=== PATIENT | male | born 1990 | race American Indian/Alaskan Native ===

== ENCOUNTER 2017-02-01 05:42 | Emergency (ER) | payer MEDICAID ==
[2017-02-01 06:32] VITALS: BP 139/88
[2017-02-01 07:58] LABS: Urine Drugs of Abuse Note Disclamer
[2017-02-01 08:13] LABS: Bilirubin,Urine NEG (Negative); Blood,Urine NEG (Negative); Ketones,Urine NEG (Negative); Leukocyte Esterase,Urine NEG (Negative); Nitrite,Urine NEG (Negative); Protein,Urine <15 mg/dL mg/dL (Negative); RBC,Urine < 1.0 /HPF (0.0-6.0); Urobilinogen,Urine < 2.0 mg/dL (<2.0)
[2017-02-01 08:15] LABS: WBC,Urine < 1.0 /HPF (0.0-6.0)
--- NOTE | 2017-02-01 18:28 | ED Elopement Review ---
ED Pt Elopement review - Results review Lab results: Laboratory Tests 02/01/17 02/01/17 Unknown Unknown Urine Color Colorless Urine Turbidity Clear Urine pH 6.0 Ur Specific Thornton 1.002 L Urine Protein <15 mg/dl Urine Glucose (UA) Neg Urine Ketones Neg Urine Blood Neg Urine Nitrite Neg Urine Bilirubin Neg Urine Urobilinogen < 2.0 Ur Leukocyte Esterase Neg Urine WBC (Auto) < 1.0 Urine RBC (Auto) < 1.0 Urine Opiates Screen Presumptive negative Urine Methadone Screen Presumptive negative Ur Barbiturates Screen Presumptive negative Ur Phencyclidine Scrn Presumptive negative Ur Amphetamines Screen Presumptive negative U Benzodiazepines Scrn Presumptive negative Urine Cocaine Screen Presumptive negative U Marijuana (THC) Screen Presumptive negative Drugs of Abuse Note Disclamer - Call Back decision Pt Call Back Decision: No action required
== END 2017-02-01 08:00 | disposition left against medical advice (07) ==
LOC: ED 05:42
DX: F20.9 Schizophrenia, unspecified (principal); Z53.21 Procedure and treatment not carried out due to patient leaving prior to being seen by health care provider
CPT/HCPCS: 80307; 81001

== ENCOUNTER 2017-04-17 21:32 | Emergency (ER) | payer MEDICAID ==
[2017-04-17 22:01] VITALS: BP 126/95
--- NOTE | 2017-04-18 00:02 | Emergency Department Report ---
ED Lower Extremity HPI - General Chief Complaint: Extremity Injury, Lower Stated Complaint: SPRAINED RT KNEE Time Seen by Provider: 04/17/17 23:34 Source: patient Mode of arrival: Ambulatory Limitations: No Limitations - History of Present Illness Initial Comments: 18-year-old male past medical history schizophrenia, asthma presents with complaint of right knee pain. Patient states that he was playing basketball this afternoon and after a jump felt pain in his right knee. Patient is ambulatory with slight limp. Patient denies any other injuries. States he felt slight popping sensation in his right knee. Occurred this afternoon. Patient is ambulatory but limping. Complaint: knee injury Onset/Timin -: hour(s) Injury: Knee: Right Type of Injury: other (jump) Place: street/outdoors Severity: moderate Severity scale (0 -10): 5 Improves With: immobilization Worsens With: weight bearing, movement, palpation Context: jumping Associated Symptoms: able to partially bear weight - Related Data Home Medications Medication Instructions Recorded Confirmed Last Taken Benztropine 0.5 mg PO HS 02/01/17 02/01/17 Unknown Geodon 80 mg PO HS 02/01/17 02/01/17 Unknown Previous Rx's Medication Instructions Recorded Last Taken Type ALBUTEROL Inhaler [ProAir HFA 2 puff IH QID PRN #1 inhalation 10/31/16 Unknown Rx Inhaler] Naproxen [Naprosyn TAB] 500 mg PO BID PRN #25 tablet 04/18/17 Unknown Rx Allergies Allergy/AdvReac Type Severity Reaction Status Date / Time No Known Allergies Allergy Unverified 10/31/16 10:55 ED Review of Systems ROS: Stated complaint: SPRAINED RT KNEE Other details as noted in HPI Constitutional: denies: chills, fever Eyes: denies: eye pain, eye discharge, vision change ENT: denies: ear pain, throat pain Respiratory: denies: cough, shortness of breath, wheezing Cardiovascular: denies: chest pain, palpitations Endocrine: no symptoms reported Gastrointestinal: denies: abdominal pain, nausea, diarrhea Genitourinary: denies: urgency, dysuria Musculoskeletal: denies: back pain, joint swelling, arthralgia Skin: denies: rash, lesions Neurological: denies: headache, weakness, paresthesias Psychiatric: denies: anxiety, depression Hematological/Lymphatic: denies: easy bleeding, easy bruising ED Past Medical Hx - Past Medical History Previous Medical History?: Yes Hx Psychiatric Treatment: Yes (SCHIZOPHRENIA) Hx Asthma: Yes - Surgical History Past Surgical History?: No - Social History Smoking Status: Current Every Day Smoker Substance Use Type: None - Medications Home Medications: Home Medications Medication Instructions Recorded Confirmed Last Taken Type ALBUTEROL Inhaler [ProAir HFA 2 puff IH QID PRN #1 inhalation 10/31/16 02/01/17 Unknown Rx Inhaler] Benztropine 0.5 mg PO HS 02/01/17 02/01/17 Unknown History Geodon 80 mg PO HS 02/01/17 02/01/17 Unknown History Naproxen [Naprosyn TAB] 500 mg PO BID PRN #25 tablet 04/18/17 Unknown Rx ED Physical Exam - General Limitations: No Limitations General appearance: alert, in no apparent distress - Head Head exam: Present: atraumatic, normocephalic - Eye Eye exam: Present: normal appearance, PERRL, EOMI - ENT ENT exam: Present: mucous membranes moist - Neck Neck exam: Present: normal inspection - Respiratory Respiratory exam: Present: normal lung sounds bilaterally. Absent: respiratory distress - Cardiovascular Cardiovascular Exam: Present: regular rate, normal rhythm. Absent: systolic murmur, diastolic murmur, rubs, gallop - GI/Abdominal GI/Abdominal exam: Present: soft, normal bowel sounds - Rectal Rectal exam: Present: deferred - Extremities Exam Extremities exam: Present: normal inspection - Expanded Lower Extremity Exam Right Hip exam: Present: normal inspection, full ROM Upper Leg exam: Present: normal inspection, full ROM Knee exam: Present: full ROM (full knee extension and flexion), tenderness ( mild anterior knee tenderness) Lower Leg exam: Present: normal inspection, full ROM Ankle exam: Present: normal inspection, full ROM Foot/Toe exam: Present: normal inspection, full ROM Neuro vascular tendon exam: Present: no vascular compromise (distal dorsalis pedis and posterior tibial pulses intact distal sensation intact. Popliteal pulses right knee/leg intact) Gait: Positive: antalgic 1 - Mild pain on palpation here, minimal to no swelling, popliteal pulses intact - Back Exam Back exam: Present: normal inspection - Neurological Exam Neurological exam: Present: alert, oriented X3 - Psychiatric Psychiatric exam: Present: normal affect, normal mood - Skin Skin exam: Present: warm, dry, intact, normal color. Absent: rash ED Course Vital Signs 04/17/17 21:57 Temperature 98.4 F Pulse Rate 92 H Respiratory 18 Rate Blood Pressure 126/95 O2 Sat by Pulse 100 Oximetry ED Lower Extremity MDM - Medical Decision Making A/P: Right knee sprain, possible meniscus injury 1-x-ray shows no acute fracture 2-naproxen when necessary 3-RICE therapy, Mauricio wrap, knee immobilizer 4- referred to orthopedics Critical care attestation.: If time is entered above; I have spent that time in minutes in the direct care of this critically ill patient, excluding procedure time. ED Disposition Clinical Impression: Right knee sprain Qualifiers: Encounter type: initial encounter Involved ligament of knee: unspecified collateral ligament Qualified Code(s): S83.401A - Sprain of unspecified collateral ligament of right knee, initial encounter Disposition: TO HOME OR SELFCARE Is pt being admited?: No Does the pt Need Aspirin: No Condition: Stable Instructions: Knee Pain (ED), Knee Immobilizer (ED), RICE Therapy (ED) Prescriptions: Naproxen [Naprosyn TAB] 500 mg PO BID PRN #25 tablet PRN Reason: Pain Referrals: BRIANNE SHORT MD [Staff Physician] - 3-5 Days [facility] [Provider Group] - 3-5 Days Forms: Work/School Release Form(ED) Time of Disposition: 00:05
[2017-04-18] MEDS ORDERED: MOTRIN PO ONE (00:04)
--- NOTE | 2017-04-18 07:31 | XRay Report ---
RIGHT KNEE, 3 views: History: Right knee pain. The bony architecture is intact without evidence of fracture or dislocation. No significant soft tissue abnormality is seen. IMPRESSION: Normal right knee.
== END 2017-04-18 00:20 | disposition home or self-care (01) ==
LOC: ED 21:32
DX: S83.401A Sprain of unspecified collateral ligament of right knee, initial encounter (principal); F20.9 Schizophrenia, unspecified; J45.909 Unspecified asthma, uncomplicated; F17.200 Nicotine dependence, unspecified, uncomplicated; W17.89XA Other fall from one level to another, initial encounter; Y93.9 Activity, unspecified; Y92.9 Unspecified place or not applicable; Y99.9 Unspecified external cause status
CPT/HCPCS: 99283

== ENCOUNTER 2017-05-08 16:00 | Emergency (ER) | payer MEDICAID ==
[2017-05-08 16:30] VITALS: BP 120/75
== END 2017-05-08 20:54 | disposition left against medical advice (07) ==
LOC: ED 16:00
DX: R50.9 Fever, unspecified (principal); R51 Headache; F20.9 Schizophrenia, unspecified; F17.200 Nicotine dependence, unspecified, uncomplicated; Z53.21 Procedure and treatment not carried out due to patient leaving prior to being seen by health care provider